=== PATIENT | male | born 1975 | race Hispanic/Latino ===

== ENCOUNTER 2019-02-05 09:49 | Inpatient (IN) | payer SELFPAY ==
[2019-02-05] MEDS ORDERED: Ondansetron PF 4 MG/2 ML Vial ONE (10:00)
[2019-02-05] MEDS ORDERED: Pantoprazole 40 MG VIAL ONE ×2 (10:00→10:05)
[2019-02-05 10:10] LABS: #Lymphocytes 2.1 thou/uL (1.20-3.40); #Monocytes 0.8 thou/uL (0.11-0.59); #Neutrophils 8.1 thou/uL (1.40-6.50); %Basophils 0.3 % (0.0-1.0); %Eosinophils 0.2 % (0.0-10.0); %Lymphocytes 19.1 % (21.0-51.0); %Monocytes 7.2 % (0.0-10.0); %Neutrophils 73.2 % (42.0-75.0); Hemoglobin 12.5 g/dL (14.0-18.0); Mean Corpuscular HGB CONC 34.4 g/dL (32.0-36.0); Platelet Count 134 thou/uL (130-400); Red Blood Cell (RBC) Count 3.56 mill/uL (4.70-6.10)
[2019-02-05] MEDS ORDERED: Pantoprazole 80 MG in Sodium Chloride 0.9% 100 ML IVP SCH (10:15)
[2019-02-05 10:19] LABS: INR-International Normal Ratio 1.4; Prothrombin Time 17.3 SEC (12.0-14.7)
[2019-02-05 10:37] LABS: ALT (SGPT) 32 U/L (8-55); AST (SGOT) 49 U/L (5-34); Acetaminophen Less than 6.0 mcg/mL (10.0-30.0); Albumin 3.4 g/dL (3.5-5.0); Alcohol Less than 10 mg/dL (Less than 10); Alkaline Phosphatase 108 U/L (40-150); Anion Gap 15 mmol/L (10-20); BUN (Urea Nitrogen) 18 mg/dL (8.9-20.6); Bilirubin, Total 1.5 mg/dL (0.2-1.2); Calc. Creatinine Clearance 0 mL/min (70-130); Carbon Dioxide 23 mmol/L (22-29); Chloride 102 mmol/L (98-107); Estimated GFR-MDRD Greater than 90; Globulin 3.1 g/dL (2.4-3.5); Glucose 209 mg/dL (70-105); Lipase 47 U/L (8-78); Potassium 4.1 mmol/L (3.5-5.1); Protein, Total 6.5 g/dL (6.0-8.3); Salicylate Less than 8.0 mg/dL (15.0-30.0); Sodium 136 mmol/L (136-145)
[2019-02-05] MEDS ORDERED: Ondansetron PF 4 MG/2 ML Vial IVP PRN (10:58)
[2019-02-05] MEDS ORDERED: Multivitamins, Adult 10 ML, Folic Acid 1 MG, Thiamine HCl 100 MG in Dextrose 5 %-0.45 %... IV SCH (11:00)
[2019-02-05] MEDS: cefTRIAXone\\ROCEPHIN 1 GM in Sodium Chloride 0.9% 100 ML IVPB SCH ×2 (11:00→17:10)
[2019-02-05 11:09] LABS: Medtox Reader # READER 1
[2019-02-05 11:10] LABS: Amphetamine Not Detected (NotDetected); Barbiturates Screen Not Detected (NotDetected); Benzodiazepine Screen Not Detected (NotDetected); Cocaine Metabolite Screen Not Detected (NotDetected); Medtox Control Line Valid? VALID (VALID); Methadone Not Detected (NotDetected); Methamphetamine Not Detected (NotDetected); Opiate Screen Not Detected (NotDetected); Oxycodone Screen Not Detected (NotDetected); Phencyclidine (PCP) Not Detected (NotDetected); THC/Cannabinoid Screen Not Detected (NotDetected); Tricyclic Screen Not Detected (NotDetected)
[2019-02-05] MEDS ORDERED: Octreotide Acetate 1,250 MCG in Sodium Chloride 0.9% 250 ML 250 ML IVPB SCH (11:15)
[2019-02-05 11:46] LABS: Hemoglobin 9.9 g/dL (14.0-18.0)
--- NOTE | 2019-02-05 12:07 | HP ---
PRIMARY CARE PROVIDER: None. CHIEF COMPLAINT: Vomiting blood. HISTORY OF PRESENT ILLNESS: Mr. Lozano is a pleasant 44-year-old gentleman, who was seen at [facility] on February 05, 2019. He does not have any significant past medical history. He reports drinking 6 pack of beer every day. He reports that today morning around 1:00 a.m., he started vomiting blood. He reports multiple episodes of vomiting blood. He therefore presented to the emergency room. He denies any abdominal pain. He denies any chest pain or shortness of breath. He denies any fevers or chills. REVIEW OF SYSTEMS: All systems were reviewed and found to be negative except for the pertinent positives mentioned above. PAST MEDICAL HISTORY: None. PAST SURGICAL HISTORY: None. FAMILY HISTORY: No family history of premature coronary artery disease. SOCIAL HISTORY: The patient denies tobacco use and recreational drug use. He drinks 6 pack of beer a day. ALLERGIES: NO KNOWN DRUG ALLERGIES. CURRENT MEDICATIONS: None. PHYSICAL EXAMINATION: GENERAL: On examination, Mr. Lozano is awake and alert, not in acute distress. VITAL SIGNS: Blood pressure is 103/61, pulse 105, respiratory rate 17, and oxygen saturation 98% on room air. He is afebrile. Blood pressure has been as low as 87/65 in the emergency room, pulse has been as high as 128. EYES: He has scleral icterus. No conjunctival pallor. ENT: Moist mucosal membranes. No oropharyngeal erythema or exudates. NECK: Supple, nontender. Trachea is midline. RESPIRATORY: Accessory muscles of breathing are not active. Chest wall movements are symmetric bilaterally. Lungs are clear to auscultation without wheeze, rhonchi, or crepitations. CARDIOVASCULAR: S1 and S2 are heard, tachycardic and regular. Peripheral pulses palpable. No carotid bruit. No pericardial rub. ABDOMEN: Soft, mild epigastric tenderness. No guarding or rigidity. Bowel sounds are heard. NEUROLOGIC: Cranial nerves II through XII are intact. No flapping tremor. MUSCULOSKELETAL: Power is 5/5 in all 4 extremities. SKIN: No rashes or subcutaneous nodules. LYMPHATIC: No cervical lymphadenopathy. PSYCHIATRIC: The patient is oriented to person and place, not to time, has normal mood and affect. DIAGNOSTIC DATA: Mr. Lozano's labs and investigations were reviewed. Electrocardiogram shows sinus tachycardia, no ST changes to suggest an acute coronary syndrome. INR is elevated at 1.4. He has leukocytosis with 11,000 white cells, of which 73.2% are neutrophils. He has macrocytic anemia with hemoglobin 12.5. Platelet count is normal. Comprehensive metabolic profile is pending. ASSESSMENT AND PLAN: Mr. Lozano is a pleasant 44-year-old gentleman, who was seen at [facility] on February 05, 2019. His problem list includes: 1. Upper gastrointestinal bleed: Mr. Lozano is presenting with upper gastrointestinal bleed in the context of alcohol abuse. Penny differential here appears to be variceal bleed versus gastritis versus Tasha-Ware tear. He will be admitted to the hospital for further management. Because he has been hypotensive in the emergency room, he will be admitted to the critical care unit until he is clinically stable. Gastroenterology and Pulmonary and Critical Care Medicine Services are being consulted for opinion and help with management. 2 units of packed RBC transfusion have been ordered, the patient is currently awaiting this transfusions. He has already been started on a Protonix drip. I will start him on octreotide drip as well until the clinical picture is clear. 2. Alcohol abuse: The patient has been counseled regarding alcohol cessation. He will be started on ASE protocol as well as banana bag. LEVEL OF RISK: Moderate. LEVEL OF COMPLEXITY: Moderate. Job ID: [id number]
--- NOTE | 2019-02-05 13:19 | CON ---
DATE OF CONSULTATION: 02/05/2019 CONSULTING PHYSICIAN: Rajat Hdz MD REASON FOR CONSULTATION: Hypotension. HISTORY OF PRESENT ILLNESS: The patient is a 44-year-old male, who comes in with a several hour history of throwing up blood. This has never happened before. He is hypotensive. He is currently receiving a blood transfusion. He is scheduled to go down for EGD in a few minutes. PAST MEDICAL HISTORY: None. PAST SURGICAL HISTORY: None. SOCIAL HISTORY: Drinks at least a 6 pack per day, usually beer. Does not consume any illicit drugs. Does not smoke. ALLERGIES: NONE. FAMILY MEDICAL HISTORY: Unremarkable. REVIEW OF SYSTEMS: Twelve-point review of systems is otherwise negative. PHYSICAL EXAMINATION: VITAL SIGNS: Temperature 98.4, pulse 109, blood pressure 107/60, and O2 saturation 99% on room air. GENERAL: He is awake, alert, in no distress. HEENT: Pupils are reactive. Sclerae are icteric. Oropharynx is clear. NECK: No adenopathy or JVD. LUNGS: Clear to auscultation. CARDIAC: S1 and S2. Regular. ABDOMEN: Obese, soft, and nontender. EXTREMITIES: No clubbing, cyanosis, or edema. LABORATORY DATA: Sodium of 136, potassium 4.1, chloride 102, CO2 of 23, BUN 18, creatinine 0.8, glucose 209, lactate was 8.5, AST 49, ALT 32, and albumin 3.4. INR 1.4. White blood cell count 11, hematocrit 36, and platelet count 134. Repeat hematocrit 28.3. Tox screen was essentially negative including alcohol level. ASSESSMENT: 1. Upper gastrointestinal bleeding, suspect varices versus peptic ulcer disease versus gastritis. 2. Hypotension secondary to blood loss. PLAN: The patient is actively receiving blood for resuscitative purposes. He will go for EGD. I have reviewed his orders and agree. He will be cared for in the CCU immediately afterwards depending on the results of the EGD. Job ID: [id number]
[2019-02-05] MEDS ORDERED: Propofol 1,000 MG/100 ML VIAL IV ONE (14:35)
[2019-02-05 15:03] LABS: Lactic Acid 3.6 mmol/L (0.5-2.2)
[2019-02-05] MEDS: Sodium Chloride 0.9% 1,000 ML IV SCH ×2 (15:15→18:17)
[2019-02-05 15:35] LABS: Actual Bicarbonate (HCO3a) 20.3 mEq/L (22-28); Base Excess (BEa) -6.3 mEq/L (-2.0 to +3.0); CO2 Tension 44.2 mmHg (35.0-45.0); Carboxyhemoglobin (COHb) 1.4 gm% (0.0-3.0); Hemoglobin (Hb) 12.9 g/dL (14.0-18.0); O2 Tension (PaO2) 84.4 mmHg (80.0-100.0); Potassium - ABG Lab 6.24 mmol/L (3.70-5.30); pH, Arterial 7.28 (7.35-7.45)
[2019-02-05 15:38] LABS: Puncture Site RBA
[2019-02-05] MEDS ORDERED: Rocuronium Bromide 50 MG/5 ML VIAL ONE (15:46)
[2019-02-05] MEDS ORDERED: Lorazepam 2 MG/ML VIAL ONE (15:47)
[2019-02-05] MEDS ORDERED: CCU Electrolyte Replacement 1 EACH FS ONE (16:09)
[2019-02-05] MEDS ORDERED: Rocuronium Bromide 10 MG/ML (10ML VIAL) IVP PRN (16:11)
[2019-02-05] MEDS ORDERED: Ventilator Sedation Protocol 1 EACH FS SCH (16:15)
[2019-02-05] MEDS ORDERED: Rocuronium Bromide 10 MG/ML (10ML VIAL) IVP SCH (16:15)
[2019-02-05] MEDS ORDERED: Lorazepam 2 MG/ML VIAL SLOW IVP PRN (16:16)
[2019-02-05] MEDS ORDERED: Fentanyl BOLUS 250 ML IVPB PRN (16:16)
[2019-02-05] MEDS ORDERED: fentaNYL Citrate/PF 2,000 MCG in Sodium Chloride 0.9% 60 ML IV SCH (16:16)
[2019-02-05] MEDS ORDERED: Propofol 1,000 MG/100 ML VIAL IV PRN (16:16)
[2019-02-05] MEDS ORDERED: Propofol BOLUS 1,000 MG/100 ML VIAL IV PRN (16:16)
[2019-02-05] MEDS ORDERED: DISCONTINUE PREVIOUS NARCOTIC PAIN MEDICATIONS AND BENZODIAZEPINES FS SCH (16:16)
[2019-02-05] MEDS ORDERED: Morphine 2 MG/ML SYRINGE SLOW IVP PRN (16:16)
[2019-02-05] MEDS ORDERED: PHOS-NAK 1 PKT PACK PO PRN ×2 (16:17)
[2019-02-05] MEDS ORDERED: Potassium Phosphate 12 MMOL in Sodium Chloride 0.9% 250 ML 250 ML IV PRN (16:17)
[2019-02-05] MEDS ORDERED: Potassium Phosphate 9 MMOL in Sodium Chloride 0.9% 100 ML IVPB PRN (16:17)
[2019-02-05] MEDS ORDERED: Potassium Phosphate 15 MMOL in Sodium Chloride 0.9% 250 ML 250 ML IV PRN (16:17)
[2019-02-05] MEDS ORDERED: Potassium Chloride 40 MEQ in Sodium Chloride 0.9% 250 ML 250 ML IVPB PRN (16:17)
[2019-02-05] MEDS ORDERED: Magnesium Oxide 400 MG TAB PO PRN ×2 (16:17)
[2019-02-05] MEDS ORDERED: Potassium Chloride 40 MEQ in Premix Bag 1 BAG IVPB PRN (16:17)
[2019-02-05] MEDS ORDERED: CCU ELECTROLYTE REPLACEMENT PROTOCOL FS PRN (16:17)
[2019-02-05] MEDS ORDERED: Magnesium 2 GM/50 ML 2 GM in Premix Bag 1 BAG IVPB PRN (16:17)
[2019-02-05] MEDS ORDERED: Potassium Chloride 20 MEQ TAB PO PRN (16:17)
--- NOTE | 2019-02-05 16:33 | RAD ---
EXAM: XR Chest 1 View Portable PROVIDED CLINICAL HISTORY: Respiratory insufficiency COMPARISON: None FINDINGS: The cardiac silhouette is within normal limits for portable technique. An endotracheal tube is presen t, the tip of which projects caudal to the thoracic inlet and likely approximates the jr, though overlying monitor lead wires obscure the distal aspects. No focal consolidation, pleural fluid or pneumothorax apparent. Nonspecific conspicuous gaseous distention of the stomach. IMPRESSION: Endotracheal tube positioning as above.
[2019-02-05] MEDS: Rocuronium Bromide 50 MG/5 ML VIAL IVP PRN ×2 (16:40→17:58)
[2019-02-05] MEDS ORDERED: Rocuronium Bromide 50 MG/5 ML VIAL IVP SCH (17:00)
[2019-02-05 17:29] LABS: Hemoglobin 12.6 g/dL (14.0-18.0)
[2019-02-05] MEDS ORDERED: Pantoprazole 40 MG VIAL IVP SCH (21:00)
[2019-02-05 21:09] VITALS: BMI 31.8
[2019-02-05 21:11] VITALS: BP 113/67
[2019-02-05 21:15] VITALS: TEMP 97.9
--- NOTE | 2019-02-05 21:43 | OP ---
DATE OF PROCEDURE: 02/05/2019 COUNTY SURVEYOR SURGEON: None. PROCEDURE PERFORMED: EGD with variceal band ligation of actively bleeding gastric varix. INDICATION: Acute hematemesis and acute blood loss anemia in a patient with chronic alcohol abuse, but no known history of liver disease prior to presentation. MEDICATIONS: See Anesthesia record. FINDINGS: After discussion of the risks, benefits, and alternatives of the procedure, informed consent was obtained and witnessed. Pre-endoscopic cardiopulmonary examination was satisfactory. Time-out was performed before sedation was achieved. Sedation was achieved with Anesthesia assistance in the endoscopy unit. The patient was endotracheally intubated under general anesthesia in the left lateral decubitus position. A Pentax adult upper endoscope was placed into the oropharynx and passed through the cricopharyngeus under direct visualization. The esophageal mucosa appeared normal throughout. There is a single medium-sized varix in the distal esophagus with no stigmata of bleeding. The endoscope was then advanced into the stomach. The gastric fundus and proximal body are full fresh blood and clots. This was a quite significant amount. This obscured the view of most of the gastric fundus, though most of the gastric body and the gastric antrum were able to be visualized. I quickly advanced the scope beyond the pylorus and examined the first and second portions of the duodenum, which appeared normal. The gastric antrum and distal body appeared normal. Upon careful examination, the best I could of the gastric fundus, I was able to find a single briskly actively bleeding gastric varix. This was located at 40 cm from the incisors, just 2 cm beyond the GE junction. Because it was actively bleeding, I did decide to attempt variceal band ligation. The endoscope was withdrawn and the band ligator applied to the scope. The endoscope was passed back down to the bleeding site. A single band was placed on the actively bleeding varix. The band was placed in good position and hemostasis was achieved. At this point, the upper endoscope was withdrawn and the patient allowed to recover. The patient tolerated the procedure well. There were no immediate postprocedure complications. Due to continued hypotension during the procedure, I did go ahead and order two more units of RBC transfusion to be given. IMPRESSION: 1. Actively bleeding gastric varix at 40 cm, just 2 cm beyond the GE junction. Banded x1, with hemostasis achieved. 2. Single medium-sized esophageal varix with no stigmata of bleeding. 3. Large amount of fresh blood and clot filling the gastric fundus, obscuring the view of the gastric fundus. 4. Normal-appearing mucosa in the gastric body and antrum, first and second portions of the duodenum. RECOMMENDATIONS: 1. Continue the octreotide drip. 2. IV Protonix can be given as bolus dosing 40 mg every 12 hours. 3. Continue with the IV ceftriaxone. 4. I would keep the patient intubated overnight. Do not pass any nasogastric tube. 5. Trend H and H, transfuse as needed. 6. Abdominal ultrasound with Dopplers. 7. Seek transfer to a tertiary center for consideration of TIPS placement. Job ID: [id number]
--- NOTE | 2019-02-06 16:18 | DIS ---
DATE OF ADMISSION: 02/05/2019 DATE OF DISCHARGE: 02/05/2019 PRIMARY CARE PROVIDER: Unknown. DISCHARGE DIAGNOSES: 1. Acute blood loss anemia. 2. Upper gastrointestinal bleed. 3. Gastric variceal bleeding. 4. Esophageal varix. HOSPITAL COURSE: Mr. Benitez is a pleasant 43-year-old gentleman, who was admitted to [facility] on February 05, 2019, for upper GI bleed. Please refer to my history and physical note dated February 05, 2019 for further details. He was seen by Gastroenterology Service, Dr. Rajat Rutledge. He underwent EGD. He was found to have actively bleeding gastric varix, which was ligated with variceal band. He was intubated for EGD. He was admitted to the CCU. Gastroenterology Service recommended transfer to tertiary care hospital for consideration of TIPS placement. The patient also received 4 units of packed RBC transfusion. On February 05, Mr. Benitez was accepted to [facility] and was transferred there by air ambulance. DISCHARGE DESTINATION: [facility]. Job ID: [id number]
--- NOTE | 2019-02-08 08:53 | CON ---
DATE OF CONSULTATION: 02/05/2019 REQUESTING PHYSICIAN: Dr. Pak. REASON FOR CONSULTATION: Hematemesis. HISTORY OF PRESENT ILLNESS: Emmanuel Lozano is a 43-year-old man, who speaks Macedonian only, seen today with the assistance of an auto damage appraiser. He presented to the Emergency Department this morning with hematemesis. He says he has had six episodes of brigid hematemesis starting at 1 a.m. He has associated epigastric pain and nausea, this was all fairly acute starting early this morning. He has never had anything like this before and it is quite alarming to him. Upon presentation, he was tachycardic with pulse in the 140s. It is now down to 113 with some fluid resuscitation. Hemoglobin is 12.5, BUN only 18. The lactic acid elevated to 8.5. He had one episode of hematemesis since arrival. He has received a Protonix bolus and a Protonix drip is being started. Admission to the ICU is planned. He has no significant past medical history. He says NSAID use is rare. He does not take any other medications. He does drink alcohol anywhere from 6 to 12 beers most days. REVIEW OF SYSTEMS: Full review of systems including constitutional, head, eyes, ears, nose, throat, GI, , cardiovascular, respiratory, musculoskeletal, and neurologic systems are negative except as noted in the HPI. PAST MEDICAL HISTORY: None. ALLERGIES: NO KNOWN DRUG ALLERGIES. OUTPATIENT MEDICATIONS: None. FAMILY HISTORY: Negative for GI illness or liver illness or malignancy. SOCIAL HISTORY: Tobacco use is rare. He will have 6 to 12 alcoholic beverages most days. PHYSICAL EXAMINATION: VITAL SIGNS: Blood pressure 109/64, pulse 113, and 98% oxygen saturation on room air. GENERAL: A 43-year-old man lying in bed comfortably, in mild distress from nausea. MENTAL: He is alert and fully oriented. Pleasant, conversational, can give a detailed history. SKIN: No jaundice. No rashes were palpable. EYES: No scleral icterus. Extraocular movements intact. ENT: Mucous membranes moist. No oral lesions. LYMPH: No submandibular or supraclavicular lymphadenopathy. THYROID: Nontender to palpation. HEART: Regular, tachycardia. LUNGS: Clear to auscultation bilaterally. ABDOMEN: Bowel sounds present. Soft. Tender to palpation in the epigastrium. No guarding or rebound tenderness. EXTREMITIES: No peripheral edema. VESSELS: Radial pulses 2+ bilaterally. NEUROLOGIC: Cranial nerves 2 through 12 intact bilaterally. No focal deficits. LABORATORY STUDIES: WBC 11, hemoglobin 12.5, platelets 134, MCV 102. INR is 1.4. Troponin negative. BUN 18, creatinine 0.85, glucose 209. Lipase only 47, total bilirubin 1.5, alkaline phosphatase 108, AST 49, ALT 32, albumin 3.4. Lactic acid 8.58. Drug screen for salicylate, acetaminophen, and alcohol is all negative. ASSESSMENT AND PLAN: 1. Brigid hematemesis, acute this morning. 2. LFT elevation, mild, likely secondary to ongoing alcohol abuse. 3. Alcohol abuse. The patient has no known history of gastrointestinal or liver illness. It is possible that he has some early chronic liver disease. The hemoglobin is reassuring, but he is having brigid hematemesis, consider Tasha-Ware tear, peptic ulcer disease, also possible variceal bleeding. He is being admitted to the ICU. Agree with the IV Protonix. We would also go ahead and start IV Rocephin. We will plan to perform EGD urgently this afternoon. Following EGD, the patient should also have an abdominal ultrasound performed. Further recommendations following upper endoscopy. Thank you for the consultation. Please call anytime with questions or concerns. Job ID: [id number]
== END 2019-02-05 19:30 | disposition short-term general hospital (02) | DRG 271 ==
LOC: ERS 09:49 → SDC 13:10 → EDBD 13:11 → CCU 13:11
PROVIDERS: ADMIT Internal Medicine; ATTEND Internal Medicine
PROC: 06L24CZ Occlusion of Gastric Vein with Extraluminal Device, Percutaneous Endoscopic Approach (ICD-10-PCS; principal; 2019-02-05)
PROC: 30233N1 Transfusion of Nonautologous Red Blood Cells into Peripheral Vein, Percutaneous Approach (ICD-10-PCS; 2019-02-05)
DX: I86.4 Gastric varices (principal); D62 Acute posthemorrhagic anemia; K92.2 Gastrointestinal hemorrhage, unspecified; I85.00 Esophageal varices without bleeding; F10.10 Alcohol abuse, uncomplicated; Z71.41 Alcohol abuse counseling and surveillance of alcoholic
CPT/HCPCS: 36415; 36430; 71045; 80053; 80306; 80307; 82805; 83605; 83690; 84484; 85025; 85610; 85730; 86850; 86900; 86901; 93005; 94002; 94640; C9113; J0696; J2060; J2354; J2405; J2704; J3010; J3411; J3490; J7042; J7050; J7620; P9016